=== PATIENT | male | born 1950 | race Caucasian/White ===

== ENCOUNTER 2018-07-17 19:53 | Inpatient (IN) | payer OTHER, MEDICARE ==
[~2018-07-17] VITALS: Ht 170.2 cm; Wt 78.1 kg
[2018-07-17] MEDS ORDERED: IPRATROPIUM BROMIDE (0.02%) 0.5MG/2.5ML NEB HHN STA (20:09)
[2018-07-17] MEDS ORDERED: METHYLPREDNISOLONE SOD SUCC 125 MG/2 ML VIAL IV STA (20:09)
[2018-07-17] MEDS ORDERED: ALBUTEROL (0.083%) 2.5MG/3ML NEB HHN STA (20:09)
[2018-07-17 20:55] LABS: BASOPHILS % 1.3 % (0.0-2.0); EOSINOPHILS % 6.9 % (0.0-5.0); HEMATOCRIT. 44.9 % (42.0-52.0); HEMOGLOBIN. 14.8 g/dL (14.0-18.0); LYMPHOCYTES % 26.7 % (20.0-50.0); MEAN CORPUSCULAR HEMOGLOBIN 28.5 pg (28.0-32.0); MEAN CORPUSCULAR VOLUME 86.2 fL (80.0-94.0); MEAN PLATELET VOLUME 9.5 fl (7.4-10.4); MONOCYTES % 12.3 % (2.0-8.0); NEUTROPHILS % 52.8 % (40.0-76.0); PLATELET 252 x1000/uL (130-400); RED CELL DISTRIBUTION WIDTH 14.5 % (11.6-14.6)
[2018-07-17 20:58] LABS: CHLORIDE 106 mEq/L (98-107)
[2018-07-17] MEDS ORDERED: CEFTRIAXONE 1 G PREMIX 50 ML IV ONE (22:15)
[2018-07-17] MEDS ORDERED: AZITHROMYCIN 500 MG in DEXT 5% WATER 250 ML IV ONE (22:15)
[2018-07-17 22:37] LABS: BG BASE EXCESS -0.2 mmol/L (-2.0-2.0); BG BILEVEL POS AIRWAY PRESSURE 15/5; BG CARBOXYHEMOGLOBIN 1.3 % (0.5-1.5); BG DEOXYHEMOGLOBIN 26.5 % (0.0-5.0); BG FRACTION INSPIRED OXYGEN 100; BG METHEMOGLOBIN 0.3 % (0.0-1.5); BG OXYGEN SATURATION 73.1 % (92.0-98.5); BG OXYHEMOGLOBIN 71.9 % (94.0-97.0); BG PCO2 54.2 mmHg (35.0-45.0); BG PH 7.316 (7.350-7.450); BG PO2 40.8 mmHg (75.0-100.0); BG SAMPLE SITE LEFT RADIAL; BG TOTAL HEMOGLOBIN 15.5 g/dL (12.0-18.0); BG VENT MODE MASK - BIPAP; BG VENT RATE 20 set
[2018-07-17] MEDS ORDERED: ALBUTEROL (0.5%) 2.5MG/0.5ML NEB HHN ONE (23:17)
[2018-07-17] MEDS ORDERED: IPRATROPIUM/ALBUTEROL 0.5-3(2.5)MG/3ML NEB ONE (23:18)
[2018-07-18] VITALS (14 sets, daily range): BP systolic 111–161; BP diastolic 68–96
[2018-07-18] MEDS ORDERED: LEVOFLOXACIN 500MG TABLET PO SCH (02:00)
[2018-07-18] MEDS: IPRATROPIUM/ALBUTEROL 0.5-3(2.5)MG/3ML NEB HHN SCH ×5 (04:18→20:14)
[2018-07-18] MEDS ORDERED: PANTOPRAZOLE 40MG DR TABLET PO SCH (07:30)
[2018-07-18 09:33] LABS: BG BASE EXCESS -0.5 mmol/L (-2.0-2.0); BG BILEVEL POS AIRWAY PRESSURE 15/5; BG CARBOXYHEMOGLOBIN 0.3 % (0.5-1.5); BG DEOXYHEMOGLOBIN 0.3 % (0.0-5.0); BG HCO3 ACT 24.4 mmol/L (22.0-26.0); BG METHEMOGLOBIN 0.4 % (0.0-1.5); BG OXYGEN SATURATION 99.7 % (92.0-98.5); BG PH 7.392 (7.350-7.450); BG PO2 317.8 mmHg (75.0-100.0); BG SAMPLE SITE RIGHT RADIAL; BG TOTAL HEMOGLOBIN 14.9 g/dL (12.0-18.0); BG VENT MODE MASK - BIPAP; BG VENT RATE 20 set
[2018-07-18 10:37] LABS: HEMATOCRIT. 43.5 % (42.0-52.0); HEMOGLOBIN. 14.3 g/dL (14.0-18.0); MEAN CORPUSCULAR HEMOGLOBIN 28.2 pg (28.0-32.0); MEAN PLATELET VOLUME 9.1 fl (7.4-10.4); PLATELET 238 x1000/uL (130-400); RED BLOOD CELL COUNT 5.06 mill/uL (4.7-6.1); RED CELL DISTRIBUTION WIDTH 14.7 % (11.6-14.6)
[2018-07-18] MEDS: METHYLPREDNISOLONE SOD SUCC 40 MG/ML VIAL IV SCH ×2 (10:42→20:50)
[2018-07-18] MEDS: ENOXAPARIN 40MG/0.4ML SYR SUBCUT SCH (10:42)
[2018-07-18 10:55] LABS: CHLORIDE 104 mEq/L (98-107)
[2018-07-18 11:22] LABS: PLATELET ESTIMATE NORMAL
[2018-07-18] MEDS ORDERED: PNEUMOCOCCAL 23-VAL P-SAC VAC 0.5 ML IM ONE (12:00)
[2018-07-18] MEDS ORDERED: HYDROCODONE/ACETAMINOPHEN 5/325MG TABLET PO PRN (12:30)
[2018-07-18] MEDS ORDERED: CLONIDINE 0.1MG TABLET PO PRN (12:30)
[2018-07-18] MEDS ORDERED: ACETAMINOPHEN 650MG SUPP PR PRN (12:30)
[2018-07-18] MEDS ORDERED: DIPHENHYDRAMINE 50MG/ML VIAL IV PRN (12:30)
[2018-07-18] MEDS ORDERED: ONDANSETRON HCL 4MG/2ML INJ IV PRN (12:30)
[2018-07-18 12:58] LABS: BG BASE EXCESS -0.2 mmol/L (-2.0-2.0); BG CARBOXYHEMOGLOBIN 0.3 % (0.5-1.5); BG DEOXYHEMOGLOBIN 13.3 % (0.0-5.0); BG HCO3 ACT 23.8 mmol/L (22.0-26.0); BG METHEMOGLOBIN 0.5 % (0.0-1.5); BG OXYGEN SATURATION 86.6 % (92.0-98.5); BG OXYHEMOGLOBIN 85.9 % (94.0-97.0); BG PCO2 36.9 mmHg (35.0-45.0); BG PH 7.427 (7.350-7.450); BG PO2 48.8 mmHg (75.0-100.0); BG SAMPLE SITE RIGHT BRACHIAL; BG TOTAL HEMOGLOBIN 14.8 g/dL (12.0-18.0); BG VENT MODE ROOM AIR
[2018-07-18 13:28] LABS: PROTHROMBIN TIME 10.7 sec (9.6-11.0)
[2018-07-18] MEDS: FOLIC ACID 1MG TABLET PO SCH (14:15)
[2018-07-18] MEDS: THIAMINE HCL 100MG TABLET PO SCH (14:16)
[2018-07-18] MEDS: MULTIVITAMINS,THER W-MINERALS TABLET PO SCH (14:16)
[2018-07-18] MEDS: NICOTINE 14MG PATCH TD SCH (14:21)
[2018-07-18] MEDS: ASPIRIN 81MG EC TABLET PO SCH (16:57)
[2018-07-18] MEDS: NITROGLYCERIN OINT 1GM/INCH UDPKT TD SCH ×2 (16:59→20:42)
[2018-07-18 17:55] LABS: CLARITY URINE CLEAR (CLEAR); COLOR URINE YELLOW (YELLOW); KETONES URINE 2+ (NEGATIVE); LEUKOCYTE ESTERASE URINE NEGATIVE (NEGATIVE); NITRITE URINE NEGATIVE (NEGATIVE); OCCULT BLOOD URINE NEGATIVE (NEGATIVE); PH URINE 6.5 (4.5-8.0); PROTEIN URINE NEGATIVE (NEGATIVE); SPECIFIC GRAVITY URINE 1.021 (1.005-1.030); UROBILINOGEN URINE 0.2 E.U./dL (0.2-1.0)
[2018-07-18 18:06] LABS: *AMPHETAMINES SCREEN URINE NEGATIVE (NEGATIVE)
[2018-07-18 18:07] LABS: *BARBITURATES SCREEN URINE NEGATIVE (NEGATIVE); *BENZODIAZEPINES SCREEN URINE NEGATIVE (NEGATIVE); *COCAINE SCREEN URINE NEGATIVE (NEGATIVE); METHADONE URINE SCREEN NEGATIVE (NEGATIVE); OPIATES URINE SCREEN PRESUMTIVE POSITIVE (NEGATIVE)
[2018-07-18 18:08] LABS: CANNABINOID URINE SCREEN NEGATIVE (NEGATIVE)
[2018-07-18 18:45] LABS: PHENCYCLIDINE URINE SCREEN NEGATIVE (NEGATIVE)
[2018-07-18] MEDS: BUDESONIDE 0.5MG/2ML NEB HHN SCH (20:14)
[2018-07-18] MEDS: FAMOTIDINE 20MG/2ML VIAL IV SCH (20:45)
[2018-07-18] MEDS: AMLODIPINE 2.5MG TABLET PO SCH (20:53)
[2018-07-19] VITALS (12 sets, daily range): BP systolic 90–137; BP diastolic 62–75
[2018-07-19] MEDS: IPRATROPIUM/ALBUTEROL 0.5-3(2.5)MG/3ML NEB HHN SCH ×6 (00:07→20:18)
[2018-07-19] MEDS: NITROGLYCERIN OINT 1GM/INCH UDPKT TD SCH ×5 (00:25→21:20)
[2018-07-19] MEDS: LEVOFLOXACIN 500MG PREMIX 100 ML IV SCH (02:22)
[2018-07-19 06:37] LABS: HEMATOCRIT. 39.7 % (42.0-52.0); MEAN CORPUSCULAR HEMOGLOBIN 28.2 pg (28.0-32.0); MEAN PLATELET VOLUME 9.4 fl (7.4-10.4); PLATELET 244 x1000/uL (130-400); RED BLOOD CELL COUNT 4.61 mill/uL (4.7-6.1); RED CELL DISTRIBUTION WIDTH 14.7 % (11.6-14.6)
[2018-07-19 07:49] LABS: CHLORIDE 103 mEq/L (98-107)
[2018-07-19] MEDS: BUDESONIDE 0.5MG/2ML NEB HHN SCH ×2 (09:00→20:19)
[2018-07-19] MEDS: AMLODIPINE 2.5MG TABLET PO SCH (09:02)
[2018-07-19] MEDS: FAMOTIDINE 20MG/2ML VIAL IV SCH ×2 (09:02→21:20)
[2018-07-19] MEDS: METHYLPREDNISOLONE SOD SUCC 40 MG/ML VIAL IV SCH ×2 (09:02→21:20)
[2018-07-19] MEDS: THIAMINE HCL 100MG TABLET PO SCH (09:02)
[2018-07-19] MEDS: FOLIC ACID 1MG TABLET PO SCH (09:02)
[2018-07-19] MEDS: ENOXAPARIN 40MG/0.4ML SYR SUBCUT SCH (09:03)
[2018-07-19] MEDS: ACETAMINOPHEN 325MG TABLET PO PRN (09:03)
[2018-07-19] MEDS: NICOTINE 14MG PATCH TD SCH (09:03)
[2018-07-19] MEDS: ASPIRIN 81MG EC TABLET PO SCH (09:03)
[2018-07-19] MEDS: MULTIVITAMINS,THER W-MINERALS TABLET PO SCH (09:04)
[2018-07-19 10:48] LABS: PLATELET ESTIMATE NORMAL
[2018-07-20] VITALS (9 sets, daily range): BP systolic 99–132; BP diastolic 57–82
[2018-07-20] MEDS: IPRATROPIUM/ALBUTEROL 0.5-3(2.5)MG/3ML NEB HHN SCH ×4 (01:43→12:40)
[2018-07-20] MEDS: LEVOFLOXACIN 500MG PREMIX 100 ML IV SCH (02:10)
[2018-07-20 06:11] LABS: HEMATOCRIT. 39.6 % (42.0-52.0); MEAN CORPUSCULAR HEMOGLOBIN 28.1 pg (28.0-32.0); MEAN PLATELET VOLUME 9.7 fl (7.4-10.4); PLATELET 237 x1000/uL (130-400); RED BLOOD CELL COUNT 4.61 mill/uL (4.7-6.1); RED CELL DISTRIBUTION WIDTH 15.1 % (11.6-14.6)
[2018-07-20] MEDS: NITROGLYCERIN OINT 1GM/INCH UDPKT TD SCH ×2 (06:21→14:00)
[2018-07-20] MEDS: ACETAMINOPHEN 325MG TABLET PO PRN (06:22)
[2018-07-20 08:20] LABS: CHLORIDE 103 mEq/L (98-107)
[2018-07-20] MEDS: FAMOTIDINE 20MG/2ML VIAL IV SCH (08:42)
[2018-07-20] MEDS: FOLIC ACID 1MG TABLET PO SCH (08:42)
[2018-07-20] MEDS: MULTIVITAMINS,THER W-MINERALS TABLET PO SCH (08:42)
[2018-07-20] MEDS: METHYLPREDNISOLONE SOD SUCC 40 MG/ML VIAL IV SCH (08:42)
[2018-07-20] MEDS: ASPIRIN 81MG EC TABLET PO SCH (08:42)
[2018-07-20] MEDS: THIAMINE HCL 100MG TABLET PO SCH (08:42)
[2018-07-20] MEDS: ENOXAPARIN 40MG/0.4ML SYR SUBCUT SCH (08:43)
[2018-07-20] MEDS: NICOTINE 14MG PATCH TD SCH (08:43)
[2018-07-20] MEDS: BUDESONIDE 0.5MG/2ML NEB HHN SCH (08:57)
[2018-07-20] MEDS ORDERED: AMLODIPINE 2.5MG TABLET PO SCH (09:00)
[2018-07-20 10:11] LABS: PLATELET ESTIMATE NORMAL
== END 2018-07-20 16:20 | disposition home or self-care (01) | DRG 291 ==
LOC: ER 19:53 → 5EST 22:20 → EDBEDREQ 22:22 → EDBEDREQSVC 22:22 → EDBEDREQTM 22:22 → ENRESERV 22:49
PROVIDERS: ADMIT Internal Medicine; ATTEND Internal Medicine
PROC: 5A09357 Assistance with Respiratory Ventilation, Less than 24 Consecutive Hours, Continuous Positive Airway Pressure (ICD-10-PCS; principal; 2018-07-17)
DX: I11.0 Hypertensive heart disease with heart failure (principal); J96.01 Acute respiratory failure with hypoxia; J96.02 Acute respiratory failure with hypercapnia; J44.1 Chronic obstructive pulmonary disease with (acute) exacerbation; E87.2 Acidosis; R73.9 Hyperglycemia, unspecified; I50.43 Acute on chronic combined systolic (congestive) and diastolic (congestive) heart failure; F10.20 Alcohol dependence, uncomplicated; F17.210 Nicotine dependence, cigarettes, uncomplicated; H91.10 Presbycusis, unspecified ear; I25.10 Atherosclerotic heart disease of native coronary artery without angina pectoris; I25.2 Old myocardial infarction; Z79.82 Long term (current) use of aspirin; Z95.1 Presence of aortocoronary bypass graft; Z99.81 Dependence on supplemental oxygen
CPT/HCPCS: 36415; 36600; 71045; 71250; 76700; 80048; 80305; 82375; 82805; 83036; 83880; 84484; 93005; 93306; 93970; 94640; 96374; 99291; J0456; J0696; J1650; J1956; J2920; J2930; J3490; J7050; J7060; J7611; J7620; J7626

== ENCOUNTER 2021-08-31 20:40 | Inpatient (IN) | payer MEDICARE, OTHER ==
[~2021-08-31] VITALS: Ht 167.6 cm; Wt 75.8 kg
[2021-08-31 21:46] LABS: CHLORIDE 104 mEq/L (98-107)
[2021-08-31 21:56] LABS: BASOPHILS % 0.9 % (0.0-2.0); EOSINOPHILS % 3.1 % (0.0-5.0); HEMATOCRIT. 46.8 % (42.0-52.0); HEMOGLOBIN. 15.1 g/dL (14.0-18.0); LYMPHOCYTES % 31.1 % (20.0-50.0); MEAN CORPUSCULAR VOLUME 86.7 fL (80.0-94.0); MEAN PLATELET VOLUME 10.4 fl (7.4-10.4); NEUTROPHILS % 50.9 % (40.0-76.0); PLATELET 238 x1000/uL (130-400); RED CELL DISTRIBUTION WIDTH 14.1 % (11.6-14.6)
[2021-08-31 21:57] LABS: BG BASE EXCESS 1.9 mmol/L (-2.0-2.0); BG CARBOXYHEMOGLOBIN 2.2 % (0.5-1.5); BG DEOXYHEMOGLOBIN 2.4 % (0.0-5.0); BG FRACTION INSPIRED OXYGEN 40; BG HCO3 ACT 27.8 mmol/L (22.0-26.0); BG METHEMOGLOBIN 0.1 % (0.0-1.5); BG OXYGEN SATURATION 97.5 % (92.0-98.5); BG OXYHEMOGLOBIN 95.3 % (94.0-97.0); BG PCO2 48.2 mmHg (35.0-45.0); BG PH 7.379 (7.350-7.450); BG PO2 101.1 mmHg (75.0-100.0); BG SAMPLE SITE RIGHT RADIAL; BG TOTAL HEMOGLOBIN 15.7 g/dL (12.0-18.0); BG VENT MODE MASK - BIPAP
[2021-09-01] VITALS (10 sets, daily range): BP systolic 90–143; BP diastolic 32–76
[2021-09-01] MEDS ORDERED: CLONIDINE 0.1MG TABLET PO PRN (00:30)
[2021-09-01] MEDS ORDERED: DIPHENHYDRAMINE 50MG/ML VIAL IV PRN (00:30)
[2021-09-01] MEDS ORDERED: IPRATROPIUM/ALBUTEROL 0.5-3(2.5)MG/3ML NEB HHN PRN (00:30)
[2021-09-01] MEDS ORDERED: MAGNESIUM/ALUMINUM HYDROXIDE/SIMETHICONE 30ML UDC PO PRN (00:30)
[2021-09-01] MEDS ORDERED: ONDANSETRON HCL 4MG/2ML INJ IV PRN (00:30)
[2021-09-01] MEDS ORDERED: MAGNESIUM HYDROXIDE 400MG/5ML 30ML UDC PO PRN (00:30)
[2021-09-01] MEDS ORDERED: ACETAMINOPHEN 325MG TABLET PO PRN ×2 (00:30)
[2021-09-01] MEDS ORDERED: ZOLPIDEM TARTRATE 5MG TABLET PO PRN (00:30)
[2021-09-01] MEDS: IPRATROPIUM/ALBUTEROL 0.5-3(2.5)MG/3ML NEB HHN SCH ×4 (01:34→21:37)
[2021-09-01] MEDS ORDERED: METHYLPREDNISOLONE SOD SUCC 125 MG/2 ML VIAL IV SCH (06:00)
[2021-09-01] MEDS: SODIUM CHLORIDE 0.9% INJ 3ML FLUSH IVF SCH ×3 (06:00→22:23)
[2021-09-01] MEDS: ENOXAPARIN 40MG/0.4ML SYR SUBCUT SCH (08:06)
[2021-09-01] MEDS: GUAIFENESIN 600MG ER TABLET PO SCH ×2 (08:06→22:24)
[2021-09-01] MEDS: OMEPRAZOLE 20MG CAPSULE EXTENDED RELEASE PO SCH ×2 (08:06→22:24)
[2021-09-01] MEDS ORDERED: BENZONATATE 100MG CAPSULE PO PRN (12:45)
[2021-09-01] MEDS: METHYLPREDNISOLONE SOD SUCC 125 MG/2 ML VIAL IV SCH ×2 (14:24→22:24)
[2021-09-01] MEDS: PROMETHAZINE/DEXTROMETHORPHAN 6.25-15MG/5ML BOTTLE 120ML PO PRN (17:03)
[2021-09-02] VITALS (9 sets, daily range): BP systolic 99–139; BP diastolic 48–81
[2021-09-02] MEDS: IPRATROPIUM/ALBUTEROL 0.5-3(2.5)MG/3ML NEB HHN SCH ×4 (00:30→20:14)
[2021-09-02] MEDS: SODIUM CHLORIDE 0.9% INJ 3ML FLUSH IVF SCH ×3 (05:29→21:27)
[2021-09-02] MEDS: METHYLPREDNISOLONE SOD SUCC 125 MG/2 ML VIAL IV SCH ×3 (05:30→21:28)
[2021-09-02] MEDS: ENOXAPARIN 40MG/0.4ML SYR SUBCUT SCH (08:29)
[2021-09-02] MEDS: OMEPRAZOLE 20MG CAPSULE EXTENDED RELEASE PO SCH (08:29)
[2021-09-02] MEDS: GUAIFENESIN 600MG ER TABLET PO SCH ×2 (08:29→21:28)
[2021-09-03] MEDS: PROMETHAZINE/DEXTROMETHORPHAN 6.25-15MG/5ML BOTTLE 120ML PO PRN (02:31)
[2021-09-03] MEDS: IPRATROPIUM/ALBUTEROL 0.5-3(2.5)MG/3ML NEB HHN SCH ×3 (03:57→14:17)
[2021-09-03 04:00] VITALS: BP 123/75
[2021-09-03] MEDS: METHYLPREDNISOLONE SOD SUCC 125 MG/2 ML VIAL IV SCH (06:30)
[2021-09-03] MEDS: SODIUM CHLORIDE 0.9% INJ 3ML FLUSH IVF SCH (06:30)
[2021-09-03 08:00] VITALS: BP 111/65
[2021-09-03] MEDS ORDERED: FAMOTIDINE 20MG TABLET PO SCH (09:00)
[2021-09-03] MEDS: GUAIFENESIN 600MG ER TABLET PO SCH (09:21)
[2021-09-03] MEDS: ENOXAPARIN 40MG/0.4ML SYR SUBCUT SCH (09:21)
[2021-09-03 12:00] VITALS: BP 136/70
[2021-09-03] MEDS ORDERED: METHYLPREDNISOLONE SOD SUCC 40 MG/ML VIAL IV SCH (14:00)
[2021-09-03 16:00] VITALS: BP 123/67
[2021-09-03 16:35] VITALS: BP 123/67
[2021-09-04] MEDS ORDERED: METHYLPREDNISOLONE SOD SUCC 40 MG/ML VIAL IV SCH (09:00)
== END 2021-09-03 17:50 | disposition home or self-care (01) | DRG 189 ==
LOC: ER 20:40 → MICUSO 22:41 → EDBEDREQ 22:43 → EDBEDREQTM 22:43 → 5EST 09-01 03:19 → 6WST 09-03 10:55
PROVIDERS: ADMIT Internal Medicine; ATTEND Internal Medicine
PROC: 5A09357 Assistance with Respiratory Ventilation, Less than 24 Consecutive Hours, Continuous Positive Airway Pressure (ICD-10-PCS; principal; 2021-08-31)
PROC: 5A09357 Assistance with Respiratory Ventilation, Less than 24 Consecutive Hours, Continuous Positive Airway Pressure (ICD-10-PCS; 2021-09-02)
DX: J96.01 Acute respiratory failure with hypoxia (principal); J44.1 Chronic obstructive pulmonary disease with (acute) exacerbation; I10 Essential (primary) hypertension; I25.10 Atherosclerotic heart disease of native coronary artery without angina pectoris; Z20.822 Contact with and (suspected) exposure to COVID-19; F17.210 Nicotine dependence, cigarettes, uncomplicated; Z91.81 History of falling; Z79.899 Other long term (current) drug therapy; Z79.51 Long term (current) use of inhaled steroids; Z99.81 Dependence on supplemental oxygen; Z95.1 Presence of aortocoronary bypass graft
CPT/HCPCS: 36415; 36600; 71045; 80053; 82375; 82805; 83880; 84484; 85025; 87426; 93005; 94640; 94660; 99285; J1650; J2930

== ENCOUNTER 2022-04-03 12:22 | Inpatient (IN) | payer MEDICARE, OTHER ==
[~2022-04-03] VITALS: Ht 167.6 cm; Wt 75.8 kg
[2022-04-03] MEDS ORDERED: ALBUTEROL (0.083%) 2.5MG/3ML NEB HHN STA (18:19)
[2022-04-03] MEDS ORDERED: ASPIRIN 81MG TABLET PO ONE (18:30)
[2022-04-03] MEDS ORDERED: NITROGLYCERIN 0.4MG TABLET SL SL PRN (18:30)
[2022-04-03 18:56] LABS: BASOPHILS % 0.8 % (0.0-2.0); EOSINOPHILS % 1.5 % (0.0-5.0); HEMATOCRIT. 45.3 % (42.0-52.0); HEMOGLOBIN. 15.1 g/dL (14.0-18.0); LYMPHOCYTES % 16.7 % (20.0-50.0); MEAN CORPUSCULAR HEMOGLOBIN 28.6 pg (28.0-32.0); MEAN PLATELET VOLUME 9.3 fl (7.4-10.4); MONOCYTES % 12.4 % (2.0-8.0); NEUTROPHILS % 68.6 % (40.0-76.0); PLATELET 188 x1000/uL (130-400); RED BLOOD CELL COUNT 5.27 mill/uL (4.7-6.1); RED CELL DISTRIBUTION WIDTH 14.6 % (11.6-14.6)
[2022-04-03 19:03] LABS: CHLORIDE 100 mEq/L (98-107)
[2022-04-03 19:13] LABS: D-DIMER 1.22 mg/L FEU (<0.50); PARTIAL THROMBOPLASTIN TIME 28.7 sec (23.4-31.0); PROTHROMBIN TIME 10.9 sec (9.6-11.0)
[2022-04-03] MEDS ORDERED: FUROSEMIDE 40MG/4ML VIAL IVP ONE (20:15)
[2022-04-03] MEDS ORDERED: ALBUTEROL (0.083%) 2.5MG/3ML NEB HHN SCH (21:00)
[2022-04-03] MEDS ORDERED: IOHEXOL-350 100 ML BOTTLE ONE (21:17)
[2022-04-03] MEDS ORDERED: ENOXAPARIN 80MG/0.8ML SYR SUBCUT ONE (22:45)
[2022-04-04 08:45] VITALS: BP 120/76
[2022-04-04 08:50] VITALS: BP 120/76
[2022-04-04] MEDS ORDERED: CLONIDINE 0.1MG TABLET PO PRN (10:15)
[2022-04-04] MEDS ORDERED: ONDANSETRON HCL 4MG/2ML INJ IV PRN (10:15)
[2022-04-04] MEDS ORDERED: MORPHINE SULFATE 2 MG/ML CPJ (NOT FOR IM USE) IV PRN (10:15)
[2022-04-04] MEDS ORDERED: IPRATROPIUM/ALBUTEROL 0.5-3(2.5)MG/3ML NEB HHN PRN (10:15)
[2022-04-04] MEDS ORDERED: DIPHENHYDRAMINE 50MG/ML VIAL IV PRN (10:15)
[2022-04-04] MEDS ORDERED: ACETAMINOPHEN 325MG TABLET PO PRN (10:15)
[2022-04-04] MEDS ORDERED: METO-396 PO (11:33)
[2022-04-04] MEDS ORDERED: AMLO2.5T45 PO (11:33)
[2022-04-04 12:00] VITALS: BP 128/81
[2022-04-04] MEDS: ASPIRIN 81MG EC TABLET PO SCH (14:02)
[2022-04-04] MEDS: ENOXAPARIN 80MG/0.8ML SYR SUBCUT SCH ×2 (14:08→23:40)
[2022-04-04] MEDS: AZITHROMYCIN 500 MG in DEXT 5% WATER 250 ML IV SCH (14:48)
[2022-04-04 16:00] VITALS: BP 128/77
[2022-04-04] MEDS: DILTIAZEM HCL 90MG TABLET PO SCH ×2 (17:48→23:40)
[2022-04-04] MEDS: NITROGLYCERIN OINT 1GM/INCH UDPKT TD SCH ×2 (17:49→23:40)
[2022-04-04 20:00] VITALS: BP 130/80
[2022-04-04] MEDS: ATORVASTATIN CALCIUM 20MG TABLET PO SCH (21:38)
[2022-04-05] VITALS (7 sets, daily range): BP systolic 103–132; BP diastolic 56–94
[2022-04-05] MEDS: NITROGLYCERIN OINT 1GM/INCH UDPKT TD SCH ×3 (06:00→17:41)
[2022-04-05] MEDS: DILTIAZEM HCL 90MG TABLET PO SCH (06:00)
[2022-04-05 06:12] LABS: CHLORIDE 97 mEq/L (98-107)
[2022-04-05 06:19] LABS: HEMATOCRIT. 41.8 % (42.0-52.0); HEMOGLOBIN. 13.8 g/dL (14.0-18.0); MEAN CORPUSCULAR HEMOGLOBIN 28.3 pg (28.0-32.0); MEAN CORPUSCULAR VOLUME 85.5 fL (80.0-94.0); MEAN PLATELET VOLUME 10.1 fl (7.4-10.4); PLATELET 166 x1000/uL (130-400); RED BLOOD CELL COUNT 4.89 mill/uL (4.7-6.1); RED CELL DISTRIBUTION WIDTH 14.4 % (11.6-14.6)
[2022-04-05] MEDS: ENOXAPARIN 80MG/0.8ML SYR SUBCUT SCH ×2 (09:33→21:26)
[2022-04-05] MEDS: ASPIRIN 81MG EC TABLET PO SCH (09:33)
[2022-04-05] MEDS: DILTIAZEM HCL 60MG TABLET PO SCH ×2 (12:00→17:41)
[2022-04-05] MEDS ORDERED: FUROSEMIDE 40MG/4ML VIAL IVP SCH (12:00)
[2022-04-05] MEDS: AZITHROMYCIN 500 MG in DEXT 5% WATER 250 ML IV SCH (14:05)
[2022-04-05 17:17] LABS: PLATELET ESTIMATE NORMAL
[2022-04-05] MEDS: ATORVASTATIN CALCIUM 20MG TABLET PO SCH (21:26)
[2022-04-06] VITALS (7 sets, daily range): BP systolic 102–155; BP diastolic 55–71
[2022-04-06] MEDS: DILTIAZEM HCL 60MG TABLET PO SCH ×5 (05:54→23:57)
[2022-04-06] MEDS: NITROGLYCERIN OINT 1GM/INCH UDPKT TD SCH ×5 (05:54→23:57)
[2022-04-06 05:58] LABS: HEMATOCRIT. 43.1 % (42.0-52.0); MEAN CORPUSCULAR HEMOGLOBIN 27.7 pg (28.0-32.0); MEAN CORPUSCULAR VOLUME 85.5 fL (80.0-94.0); MEAN PLATELET VOLUME 10.2 fl (7.4-10.4); PLATELET 175 x1000/uL (130-400); RED BLOOD CELL COUNT 5.04 mill/uL (4.7-6.1); RED CELL DISTRIBUTION WIDTH 14.4 % (11.6-14.6)
[2022-04-06 06:26] LABS: CHLORIDE 99 mEq/L (98-107)
[2022-04-06] MEDS: ASPIRIN 81MG EC TABLET PO SCH (09:00)
[2022-04-06] MEDS: DEXT 5%/0.45% NACL 1000ML 1,000 ML IV SCH (12:21)
[2022-04-06] MEDS ORDERED: LIDOCAINE HCL/PF 2% 20MG/ML 5 ML/VIAL ONE (12:53)
[2022-04-06] MEDS ORDERED: HEPARIN 1000 UNITS/ML 10ML ONE (12:54)
[2022-04-06] MEDS ORDERED: IODIXANOL 320MG/ML 100 ML BOTTLE IV ONE (12:54)
[2022-04-06] MEDS ORDERED: ASPIRIN/SOD BICARB/CITRIC ACID 324MG TAB EFF ONE (13:05)
[2022-04-06] MEDS ORDERED: FENTANYL CITRATE/PF 50MCG/ML 2ML VIAL ONE (13:56)
[2022-04-06] MEDS ORDERED: MIDAZOLAM HCL 2 MG/2 ML VIAL ONE (13:56)
[2022-04-06] MEDS: AZITHROMYCIN 500 MG in DEXT 5% WATER 250 ML IV SCH (14:00)
[2022-04-06] MEDS ORDERED: ACETAMINOPHEN 325MG TABLET PO PRN (14:45)
[2022-04-06] MEDS ORDERED: ONDANSETRON HCL 4MG/2ML INJ IV PRN (14:45)
[2022-04-06] MEDS ORDERED: SODIUM CHLORIDE 0.45% 1,000 ML IV ONE (14:45)
[2022-04-06] MEDS ORDERED: MORPHINE SULFATE 2 MG/ML CPJ (NOT FOR IM USE) IV PRN (14:45)
[2022-04-06] MEDS ORDERED: ATROPINE SULFATE 1MG/10ML SYR IV PRN (14:45)
[2022-04-06] MEDS ORDERED: DILT240C91 MT (17:03)
[2022-04-06] MEDS ORDERED: APIX5TAB MT (17:04)
[2022-04-06] MEDS: ATORVASTATIN CALCIUM 20MG TABLET PO SCH (21:07)
[2022-04-06 22:52] LABS: PLATELET ESTIMATE NORMAL
[2022-04-07] VITALS: BP 115/60
[2022-04-07 04:00] VITALS: BP 103/55
[2022-04-07] MEDS: DILTIAZEM HCL 60MG TABLET PO SCH ×2 (05:44→11:40)
[2022-04-07] MEDS: NITROGLYCERIN OINT 1GM/INCH UDPKT TD SCH ×2 (05:45→11:41)
[2022-04-07 06:40] LABS: BASOPHILS % 0.7 % (0.0-2.0); EOSINOPHILS % 3.6 % (0.0-5.0); HEMATOCRIT. 41.1 % (42.0-52.0); HEMOGLOBIN. 13.5 g/dL (14.0-18.0); LYMPHOCYTES % 21.7 % (20.0-50.0); MEAN CORPUSCULAR HEMOGLOBIN 28.2 pg (28.0-32.0); MEAN CORPUSCULAR VOLUME 86.1 fL (80.0-94.0); MEAN PLATELET VOLUME 9.5 fl (7.4-10.4); MONOCYTES % 17.1 % (2.0-8.0); NEUTROPHILS % 56.9 % (40.0-76.0); PLATELET 159 x1000/uL (130-400); RED BLOOD CELL COUNT 4.77 mill/uL (4.7-6.1); RED CELL DISTRIBUTION WIDTH 14.1 % (11.6-14.6)
[2022-04-07 06:55] LABS: CHLORIDE 101 mEq/L (98-107)
[2022-04-07 08:00] VITALS: BP 120/69
[2022-04-07] MEDS: DEXT 5%/0.45% NACL 1000ML 1,000 ML IV SCH (08:03)
[2022-04-07] MEDS: ASPIRIN 81MG EC TABLET PO SCH (08:26)
[2022-04-07 12:00] VITALS: BP 96/64
[2022-04-07] MEDS ORDERED: AZITHROMYCIN 500 MG TABLET PO SCH (13:00)
[2022-04-07] MEDS ORDERED: DILTIAZEM HCL 30MG TABLET PO SCH (13:00)
[2022-04-07] MEDS ORDERED: NALOXONE HCL 0.4MG/ML VIAL IV PRN (13:15)
[2022-04-07] MEDS ORDERED: APIXABAN 5 MG TABLET PO SCH (17:00)
== END 2022-04-07 13:34 | disposition home or self-care (01) | DRG 286 ==
LOC: ER 12:22 → 7WST 22:03
PROVIDERS: ADMIT Internal Medicine; ATTEND Internal Medicine
PROC: 4A023N7 Measurement of Cardiac Sampling and Pressure, Left Heart, Percutaneous Approach (ICD-10-PCS; principal; 2022-04-06)
PROC: B211YZZ Fluoroscopy of Multiple Coronary Arteries using Other Contrast (ICD-10-PCS; 2022-04-06)
PROC: B215YZZ Fluoroscopy of Left Heart using Other Contrast (ICD-10-PCS; 2022-04-06)
PROC: B218YZZ Fluoroscopy of Left Internal Mammary Bypass Graft using Other Contrast (ICD-10-PCS; 2022-04-06)
DX: I11.0 Hypertensive heart disease with heart failure (principal); I50.23 Acute on chronic systolic (congestive) heart failure; J18.9 Pneumonia, unspecified organism; J44.0 Chronic obstructive pulmonary disease with (acute) lower respiratory infection; E46 Unspecified protein-calorie malnutrition; I42.9 Cardiomyopathy, unspecified; I48.91 Unspecified atrial fibrillation; F17.200 Nicotine dependence, unspecified, uncomplicated; I25.10 Atherosclerotic heart disease of native coronary artery without angina pectoris; R91.8 Other nonspecific abnormal finding of lung field; Z79.01 Long term (current) use of anticoagulants; Z95.1 Presence of aortocoronary bypass graft; Z99.81 Dependence on supplemental oxygen; Z79.899 Other long term (current) drug therapy; Z79.82 Long term (current) use of aspirin; Z68.27 Body mass index [BMI] 27.0-27.9, adult
CPT/HCPCS: 36415; 71045; 71275; 80048; 80053; 83735; 83880; 84443; 84484; 85025; 85379; 87426; 93005; 93306; 93459; 93970; 99285; C1769; C1887; C1893; C9803; J0456; J1644; J1650; J1940; J2250; J3010; J3490; J7060; Q9967

== ENCOUNTER 2022-07-29 17:31 | Inpatient (IN) | payer MEDICARE, OTHER ==
[~2022-07-29] VITALS: Ht 167.6 cm; Wt 79.4 kg
[~2022-07-29 17:31] MED LIST: APIX5TAB MT; DILT240C91 MT
[2022-07-29] MEDS ORDERED: SODIUM CHLORIDE 0.9% 500 ML IV ONE (18:00)
[2022-07-29] MEDS ORDERED: METOPROLOL TARTRATE 5MG/5ML VIAL IV ONE (18:15)
[2022-07-29 18:38] LABS: BASOPHILS % 0.4 % (0.0-2.0); EOSINOPHILS % 0.9 % (0.0-5.0); HEMATOCRIT. 49.4 % (42.0-52.0); LYMPHOCYTES % 18.1 % (20.0-50.0); MEAN CORPUSCULAR HEMOGLOBIN 28.7 pg (28.0-32.0); MEAN CORPUSCULAR VOLUME 88.4 fL (80.0-94.0); MEAN PLATELET VOLUME 9.7 fl (7.4-10.4); NEUTROPHILS % 70.6 % (40.0-76.0); PLATELET 195 x1000/uL (130-400); RED BLOOD CELL COUNT 5.58 mill/uL (4.7-6.1); RED CELL DISTRIBUTION WIDTH 13.9 % (11.6-14.6)
[2022-07-29 18:48] LABS: CHLORIDE 102 mEq/L (98-107); INR 1.1; PARTIAL THROMBOPLASTIN TIME 29.4 sec (23.4-31.0); PROTHROMBIN TIME 11.4 sec (9.6-11.0)
[2022-07-29] MEDS ORDERED: METOPROLOL SUCCINATE 50MG ER TABLET PO ONE (19:45)
[2022-07-30] MEDS ORDERED: HYDROCODONE/ACETAMINOPHEN 5/325MG TABLET PO PRN
[2022-07-30] MEDS ORDERED: CLONIDINE 0.1MG TABLET PO PRN
[2022-07-30] MEDS ORDERED: MAGNESIUM/ALUMINUM HYDROXIDE/SIMETHICONE 30ML UDC PO PRN
[2022-07-30] MEDS ORDERED: IPRATROPIUM/ALBUTEROL 0.5-3(2.5)MG/3ML NEB HHN PRN
[2022-07-30] MEDS ORDERED: ONDANSETRON HCL 4MG/2ML INJ IV PRN
[2022-07-30] MEDS ORDERED: DILTIAZEM HCL 125 MG in DEXT 5% WATER 100 ML IV NR ×2
[2022-07-30] MEDS ORDERED: ACETAMINOPHEN 325MG TABLET PO PRN ×2
[2022-07-30] MEDS: IPRATROPIUM BROMIDE (0.02%) 0.5MG/2.5ML NEB HHN SCH ×2 (01:06→21:25)
[2022-07-30] MEDS: BUDESONIDE 0.5MG/2ML NEB HHN SCH ×3 (03:55→21:26)
[2022-07-30 05:50] LABS: BASOPHILS % 0.7 % (0.0-2.0); EOSINOPHILS % 0.4 % (0.0-5.0); HEMATOCRIT. 42.5 % (42.0-52.0); HEMOGLOBIN. 13.7 g/dL (14.0-18.0); MEAN CORPUSCULAR HEMOGLOBIN 28.2 pg (28.0-32.0); MEAN CORPUSCULAR VOLUME 87.3 fL (80.0-94.0); MEAN PLATELET VOLUME 9.8 fl (7.4-10.4); MONOCYTES % 13.6 % (2.0-8.0); NEUTROPHILS % 64.3 % (40.0-76.0); PLATELET 165 x1000/uL (130-400); RED BLOOD CELL COUNT 4.86 mill/uL (4.7-6.1); RED CELL DISTRIBUTION WIDTH 13.8 % (11.6-14.6)
[2022-07-30 05:55] LABS: CHLORIDE 105 mEq/L (98-107)
[2022-07-30 06:03] LABS: HDL CHOLESTEROL 90 mg/dL (40-59); LDL CHOLESTEROL 32 mg/dL (5-100)
[2022-07-30 06:07] LABS: *AMPHETAMINES SCREEN URINE NEGATIVE (NEGATIVE); *BARBITURATES SCREEN URINE NEGATIVE (NEGATIVE); *BENZODIAZEPINES SCREEN URINE NEGATIVE (NEGATIVE); *COCAINE SCREEN URINE NEGATIVE (NEGATIVE); CANNABINOID URINE SCREEN NEGATIVE (NEGATIVE); METHADONE URINE SCREEN NEGATIVE (NEGATIVE); OPIATES URINE SCREEN NEGATIVE (NEGATIVE); PHENCYCLIDINE URINE SCREEN NEGATIVE (NEGATIVE)
[2022-07-30 10:27] VITALS: BP 136/70
[2022-07-30 10:29] VITALS: BP 136/70
[2022-07-30] MEDS ORDERED: ASPI-1406 PO (10:57)
[2022-07-30] MEDS: DILTIAZEM HCL 30MG TABLET PO SCH ×2 (13:28→17:22)
[2022-07-30] MEDS ORDERED: FUROSEMIDE 40MG/4ML VIAL IVP SCH (15:30)
[2022-07-30 15:43] LABS: BG BASE EXCESS 4.8 mmol/L (-2.0-2.0); BG CARBOXYHEMOGLOBIN 1.3 % (0.5-1.5); BG DEOXYHEMOGLOBIN 3.3 % (0.0-5.0); BG FRACTION INSPIRED OXYGEN 40; BG METHEMOGLOBIN 0.3 % (0.0-1.5); BG OXYGEN SATURATION 96.6 % (92.0-98.5); BG OXYHEMOGLOBIN 95.1 % (94.0-97.0); BG PCO2 52.3 mmHg (35.0-45.0); BG PH 7.391 (7.350-7.450); BG PO2 85.5 mmHg (75.0-100.0); BG SAMPLE SITE RIGHT RADIAL; BG TOTAL HEMOGLOBIN 14.5 g/dL (12.0-18.0); BG VENT MODE MASK - VENTI
[2022-07-30 16:00] VITALS: BP 151/77
[2022-07-30] MEDS: PREDNISONE 20MG TABLET PO SCH (17:44)
[2022-07-30 20:00] VITALS: BP 113/57
[2022-07-31] VITALS: BP 126/71
[2022-07-31] MEDS: DILTIAZEM HCL 30MG TABLET PO SCH ×2 (00:11→05:13)
[2022-07-31 04:00] VITALS: BP 109/55
[2022-07-31] MEDS: IPRATROPIUM BROMIDE (0.02%) 0.5MG/2.5ML NEB HHN SCH ×6 (04:45→21:18)
[2022-07-31 08:00] VITALS: BP 118/66
[2022-07-31] MEDS: BUDESONIDE 0.5MG/2ML NEB HHN SCH ×2 (08:39→21:17)
[2022-07-31] MEDS ORDERED: NALOXONE HCL 0.4MG/ML VIAL IV PRN (11:00)
[2022-07-31] MEDS: DILTIAZEM HCL 60MG TABLET PO SCH ×2 (11:21→17:34)
[2022-07-31] MEDS: PREDNISONE 20MG TABLET PO SCH (11:21)
[2022-07-31 12:00] VITALS: BP 108/54
[2022-07-31 16:00] VITALS: BP 103/62
[2022-07-31 20:00] VITALS: BP 105/60
[2022-08-01] VITALS: BP 139/55
[2022-08-01] MEDS: DILTIAZEM HCL 60MG TABLET PO SCH ×4 (00:19→17:01)
[2022-08-01] MEDS: IPRATROPIUM BROMIDE (0.02%) 0.5MG/2.5ML NEB HHN SCH ×7 (01:08→22:00)
[2022-08-01 04:00] VITALS: BP 106/56
[2022-08-01] MEDS: BUDESONIDE 0.5MG/2ML NEB HHN SCH ×2 (07:39→21:01)
[2022-08-01 08:00] VITALS: BP 116/70
[2022-08-01] MEDS: PREDNISONE 20MG TABLET PO SCH (08:16)
[2022-08-01 12:00] VITALS: BP 109/69
[2022-08-01 16:00] VITALS: BP 119/62
[2022-08-01 20:00] VITALS: BP 132/67
[2022-08-02] VITALS: BP 113/72
[2022-08-02] MEDS: DILTIAZEM HCL 60MG TABLET PO SCH ×5 (00:27→23:07)
[2022-08-02] MEDS: IPRATROPIUM BROMIDE (0.02%) 0.5MG/2.5ML NEB HHN SCH ×6 (01:13→22:26)
[2022-08-02 04:00] VITALS: BP 106/64
[2022-08-02 08:00] VITALS: BP 122/68
[2022-08-02] MEDS: PREDNISONE 20MG TABLET PO SCH (08:56)
[2022-08-02 12:00] VITALS: BP 119/64
[2022-08-02 13:55] LABS: CHLORIDE 101 mEq/L (98-107)
[2022-08-02 16:00] VITALS: BP 106/58
[2022-08-02 18:03] LABS: BASOPHILS % 0.8 % (0.0-2.0); EOSINOPHILS % 0.6 % (0.0-5.0); HEMATOCRIT. 43.3 % (42.0-52.0); HEMOGLOBIN. 13.7 g/dL (14.0-18.0); LYMPHOCYTES % 13.4 % (20.0-50.0); MEAN CORPUSCULAR HEMOGLOBIN 28.1 pg (28.0-32.0); MEAN CORPUSCULAR VOLUME 88.5 fL (80.0-94.0); MEAN PLATELET VOLUME 11.6 fl (7.4-10.4); NEUTROPHILS % 81.2 % (40.0-76.0); PLATELET 181 x1000/uL (130-400)
[2022-08-02] MEDS: DOCUSATE SODIUM 100MG CAPSULE PO PRN (18:13)
[2022-08-02 22:47] VITALS: BP 135/65
[2022-08-03 02:21] VITALS: BP 114/64
[2022-08-03] MEDS: IPRATROPIUM BROMIDE (0.02%) 0.5MG/2.5ML NEB HHN SCH ×2 (02:40→10:10)
[2022-08-03 06:02] VITALS: BP 116/70
[2022-08-03] MEDS: DILTIAZEM HCL 60MG TABLET PO SCH ×2 (06:02→13:59)
[2022-08-03] MEDS: DOCUSATE SODIUM 100MG CAPSULE PO PRN (06:07)
[2022-08-03 08:00] VITALS: BP 118/72
[2022-08-03] MEDS: PREDNISONE 20MG TABLET PO SCH (08:44)
[2022-08-03] MEDS ORDERED: APIXABAN 5 MG TABLET PO SCH (11:00)
[2022-08-03 12:00] VITALS: BP 124/65
[2022-08-03] MEDS ORDERED: AMOX1TAB16 MT (13:59)
== END 2022-08-03 14:50 | disposition left against medical advice (07) | DRG 813 ==
LOC: ER 17:31 → MICUSO 20:56 → 8WST 07-30 10:24
PROVIDERS: ADMIT Internal Medicine; ATTEND Internal Medicine
DX: D68.9 Coagulation defect, unspecified (principal); J96.21 Acute and chronic respiratory failure with hypoxia; J96.22 Acute and chronic respiratory failure with hypercapnia; J44.1 Chronic obstructive pulmonary disease with (acute) exacerbation; E87.1 Hypo-osmolality and hyponatremia; I42.9 Cardiomyopathy, unspecified; R04.0 Epistaxis; Z20.822 Contact with and (suspected) exposure to COVID-19; F17.210 Nicotine dependence, cigarettes, uncomplicated; I48.91 Unspecified atrial fibrillation; J44.9 Chronic obstructive pulmonary disease, unspecified; I11.0 Hypertensive heart disease with heart failure; I50.9 Heart failure, unspecified; E78.5 Hyperlipidemia, unspecified; Z53.29 Procedure and treatment not carried out because of patient's decision for other reasons; Z95.1 Presence of aortocoronary bypass graft; Z99.81 Dependence on supplemental oxygen; Z79.01 Long term (current) use of anticoagulants; Z79.82 Long term (current) use of aspirin
CPT/HCPCS: 36415; 36600; 71045; 71250; 80048; 80053; 80061; 80305; 82375; 82805; 83880; 84484; 85025; 86850; 86900; 87426; 93005; 94640; 99291; C1893; J1940; J3490; J7040; J7060; J7512; J7626